=== PATIENT | female | born 1970 | race Caucasian/White ===

== ENCOUNTER → 2022-08-25 | Outpatient (CLI) | payer BC ==
[~2022-08-25] MED LIST: ACET325 PO; ALPR.25 PO; AZIT250 PO; Cymbalta20 MG PO; FISH OIL; Hair, Skin & N1 EACH PO; IBUP400 PO; LORA1 PO; MOM PO
== END | disposition home or self-care (01) ==
LOC: LAB SHORT 10:21 → LAB 10:21 → PLD 10:21
DX: D23.71 Other benign neoplasm of skin of right lower limb, including hip (principal)
CPT/HCPCS: 88305